=== PATIENT | female | born 1965 | race Caucasian/White ===

== ENCOUNTER 2017-09-03 15:50 | Emergency (ER) | payer MEDICAID ==
[2017-09-03 18:24] LABS: microscopic required? NO
[2017-09-03 18:28] LABS: urine erythrocyte NEGATIVE (NEGATIVE)
[2017-09-03 18:59] VITALS: BP 128/90
== END 2017-09-03 18:59 | disposition home or self-care (01) ==
LOC: ED 15:50
PROVIDERS: Emergency Medicine Emergency Medical Services
DX: S39.012A Strain of muscle, fascia and tendon of lower back, initial encounter (principal); X58.XXXA Exposure to other specified factors, initial encounter; Y93.89 Activity, other specified; Y99.8 Other external cause status; Y92.89 Other specified places as the place of occurrence of the external cause